=== PATIENT | male | born 1995 | race Caucasian/White ===

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

== ENCOUNTER 2019-01-03 03:18 | Emergency (ER) | payer OTHER ==
[~2019-01-03] VITALS: Ht 180.3 cm; Wt 122.7 kg
[~2019-01-03 03:18] MED LIST changes: +CLINDAMYCIN300 M1 PO
[2019-01-03 03:47] LABS: HEMATOCRIT 43.8 % (39.0-50.0); HEMOGLOBIN 14.5 g/dl (14.0-18.0); IMMATURE GRANULOCYTES 0.2 % (0.0-5.0); MEAN CORPUSCULAR HGB 29.2 pG CALC (26.0-32.0); MEAN CORPUSCULAR HGB CONC 33.1 g/L CALC (32.0-36.0); NEUT# 6.62 thou/uL (1.82-7.42); RED BLOOD COUNT 4.96 mill/uL (4.70-6.10); RED CELL DISTRI WIDTH 13.4 % (11.5-15.5)
[2019-01-03 03:56] LABS: MEAN CELL VOLUME 88.3 fL CALC (80.0-100.0)
[2019-01-03 04:00] LABS: URINE BLOOD DIPSTICK LARGE (NEGATIVE); URINE GLUCOSE - DIPSTICK NEGATIVE (NEGATIVE); URINE KETONE TRACE mg/dL (NEGATIVE); URINE LEUK ESTERASE NEGATIVE (NEGATIVE); URINE PROTEIN - DIPSTICK 100 mg/dL (NEG-TRACE); URINE SPECIFIC GRAVITY >=1.030
[2019-01-03 04:01] LABS: URINE BILIRUBIN - DIPSTICK SMALL (NEGATIVE); URINE COLOR BROWN; URINE NITRITE - DIPSTICK POSITIVE (Negative)
[2019-01-03 04:02] LABS: URINE RBC 25-50 RBC/hpf (0-5)
[2019-01-03 04:03] LABS: URINE AMORPH SEDIMENT MODERATE hpf (NONE-FER); URINE BACTERIA MODERATE hpf; URINE EPITHELIAL CELLS MODERATE EPI/hpf (0-FEW); URINE MUCUS MANY hpf (NONE-FEW)
[2019-01-03 04:05] LABS: ALBUMIN 4.6 g/dL (3.2-5.0); ALKALINE PHOSPHATASE 84 u/l (38-126); ANION GAP 19 (6-22 (CALC)); BILIRUBIN, TOTAL 0.5 mg/dL (0.0-1.4); BUN 18 mg/dL (9-20); BUN/CREATININE RATIO 18 (12-20 (CALC)); CARBON DIOXIDE 20 mmol/l (22-30); CHLORIDE 105 mmol/l (95-108); GFR > 60 ML/MIN (>=60 (CALC)); GFR FOR AFR.AMER. > 60 ML/MIN (>=60 (CALC)); POTASSIUM 4.2 mmol/l (3.5-5.1); SGOT/AST 20 u/l (17-59); SODIUM 140 mmol/l (137-146); TOTAL PROTEIN 7.4 g/dL (6.3-8.2)
[2019-01-03] MEDS ORDERED: TAMSULOSIN0.4 MG PO (04:43)
[2019-01-03] MEDS ORDERED: CIPROFLOXACN500 MG PO (04:43)
[2019-01-03] MEDS ORDERED: PERCOCET 5/321 COMBO PO (04:43)
[2019-01-03] MEDS ORDERED: ZOFRAN4 MG/TAB PO (04:43)
[2019-01-03 05:00] VITALS: BP 140/78
== END 2019-01-03 05:05 | disposition home or self-care (01) | DRG 694 ==
LOC: ED 03:18
DX: N13.2 Hydronephrosis with renal and ureteral calculous obstruction (principal)

== ENCOUNTER 2019-06-05 | Emergency (ER) | payer SELFPAY ==
[~2019-06-05] MED LIST changes: +CIPROFLOXACN500 MG PO; +PERCOCET 5/321 COMBO PO; +TAMSULOSIN0.4 MG PO; +ZOFRAN4 MG/TAB PO
== END 2019-06-05 19:53 | disposition home or self-care (01) | DRG 563 ==
DX: S92.354A Nondisplaced fracture of fifth metatarsal bone, right foot, initial encounter for closed fracture (principal); F17.210 Nicotine dependence, cigarettes, uncomplicated; W10.9XXA Fall (on) (from) unspecified stairs and steps, initial encounter; Y92.009 Unspecified place in unspecified non-institutional (private) residence as the place of occurrence of the external cause

== ENCOUNTER 2020-01-24 06:10 | Emergency (ER) | payer SELFPAY ==
[~2020-01-24] VITALS: Ht 180.3 cm; Wt 127.2 kg
[2020-01-24 07:25] LABS: HEMATOCRIT 49.1 % (39.0-50.0); HEMOGLOBIN 15.8 g/dl (14.0-18.0); IMMATURE GRANULOCYTES 0.4 % (0.0-5.0); MEAN CELL VOLUME 89.6 fL CALC (80.0-100.0); MEAN CORPUSCULAR HGB 28.8 pG CALC (26.0-32.0); MEAN CORPUSCULAR HGB CONC 32.2 g/dL CAL (32.0-36.0); NEUT# 12.04 thou/uL (1.82-7.42); RED BLOOD COUNT 5.48 mill/uL (4.70-6.10); RED CELL DISTRI WIDTH 13.4 % (11.5-15.5)
[2020-01-24 07:27] LABS: URINE BLOOD DIPSTICK LARGE (NEGATIVE); URINE COLOR BROWN; URINE GLUCOSE - DIPSTICK NEGATIVE (NEGATIVE); URINE KETONE NEGATIVE (NEGATIVE); URINE LEUK ESTERASE NEGATIVE (NEGATIVE); URINE PROTEIN - DIPSTICK 100 mg/dL (NEG-TRACE); URINE SPECIFIC GRAVITY >=1.030; URINE UROBILINOGEN - DIPSTICK 0.2 E.U./dL (0.2)
[2020-01-24 07:28] LABS: URINE BILIRUBIN - DIPSTICK NEGATIVE (NEGATIVE)
[2020-01-24 07:35] LABS: URINE BACTERIA RARE hpf; URINE EPITHELIAL CELLS RARE EPI/hpf (0-FEW); URINE NITRITE - DIPSTICK NEGATIVE (Negative); URINE RBC 50-100 RBC/hpf (0-5); URINE WBC 0-2 WBC/hpf (0-5)
[2020-01-24 07:47] LABS: ALBUMIN 4.9 g/dL (3.2-5.0); ALKALINE PHOSPHATASE 94 u/l (38-126); AMYLASE 61 u/l (30-110); ANION GAP 14 (6-22 (CALC)); BILIRUBIN, TOTAL 0.4 mg/dL (0.0-1.4); BUN 10 mg/dL (9-20); BUN/CREATININE RATIO 12 (12-20 (CALC)); CARBON DIOXIDE 24 mmol/l (22-30); CHLORIDE 105 mmol/l (95-108); CREATININE 0.9 mg/dL (0.7-1.3); GFR > 60 ML/MIN (>=60 (CALC)); GFR FOR AFR.AMER. > 60 ML/MIN (>=60 (CALC)); LIPASE 51 u/l (23-300); POTASSIUM 4.3 mmol/l (3.5-5.1); SGOT/AST 20 u/l (17-59); SODIUM 138 mmol/l (137-146); TOTAL PROTEIN 7.9 g/dL (6.3-8.2)
[2020-01-24] MEDS ORDERED: TAMSULOSIN0.4 MG PO (08:07)
[2020-01-24] MEDS ORDERED: ZOFRAN4 MG/TAB PO (08:07)
[2020-01-24] MEDS ORDERED: HYDROCO/APAP1 TA9 PO ×3 (08:07→08:31)
[2020-01-24 08:28] VITALS: BP 161/85
== END 2020-01-24 09:18 | disposition home or self-care (01) | DRG 694 ==
LOC: ED 06:10
DX: N13.2 Hydronephrosis with renal and ureteral calculous obstruction (principal); F17.200 Nicotine dependence, unspecified, uncomplicated; Z87.442 Personal history of urinary calculi

== ENCOUNTER 2020-04-02 22:28 | Emergency (ER) | payer SELFPAY ==
[~2020-04-02] VITALS: Ht 180.3 cm; Wt 127.0 kg
[~2020-04-02 22:28] MED LIST changes: +HYDROCO/APAP1 TA9 PO
[2020-04-02 23:32] LABS: HEMATOCRIT 48.3 % (39.0-50.0); HEMOGLOBIN 15.7 g/dl (14.0-18.0); IMMATURE GRANULOCYTES 0.3 % (0.0-5.0); MEAN CELL VOLUME 89.1 fL CALC (80.0-100.0); MEAN CORPUSCULAR HGB CONC 32.5 g/dL CAL (32.0-36.0); NEUT# 9.06 thou/uL (1.82-7.42); RED BLOOD COUNT 5.42 mill/uL (4.70-6.10); RED CELL DISTRI WIDTH 13.4 % (11.5-15.5)
[2020-04-02 23:40] LABS: URINE BLOOD DIPSTICK LARGE (NEGATIVE); URINE COLOR YELLOW; URINE GLUCOSE - DIPSTICK NEGATIVE (NEGATIVE); URINE KETONE TRACE mg/dL (NEGATIVE); URINE NITRITE - DIPSTICK NEGATIVE (Negative); URINE PH 5.5 (4.5-8.0); URINE PROTEIN - DIPSTICK 30 mg/dL (NEG-TRACE); URINE SPECIFIC GRAVITY >=1.030; URINE UROBILINOGEN - DIPSTICK 0.2 E.U./dL (0.2)
[2020-04-02 23:42] LABS: URINE BILIRUBIN - DIPSTICK SMALL (NEGATIVE); URINE LEUK ESTERASE NEGATIVE (NEGATIVE)
[2020-04-02 23:46] LABS: URINE BACTERIA MODERATE hpf; URINE EPITHELIAL CELLS FEW EPI/hpf (0-FEW); URINE RBC >100 RBC/hpf (0-5)
[2020-04-02 23:49] LABS: ALBUMIN 4.8 g/dL (3.2-5.0); ALKALINE PHOSPHATASE 79 u/l (38-126); ANION GAP 13 (6-22 (CALC)); BILIRUBIN, TOTAL 0.3 mg/dL (0.0-1.4); BUN 12 mg/dL (9-20); BUN/CREATININE RATIO 13 (12-20 (CALC)); CARBON DIOXIDE 27 mmol/l (22-30); CHLORIDE 104 mmol/l (95-108); GFR > 60 ML/MIN (>=60 (CALC)); GFR FOR AFR.AMER. > 60 ML/MIN (>=60 (CALC)); POTASSIUM 4.5 mmol/l (3.5-5.1); SGOT/AST 20 u/l (17-59); SODIUM 139 mmol/l (137-146); TOTAL PROTEIN 7.8 g/dL (6.3-8.2)
[2020-04-03] MEDS ORDERED: CIPROFLOXACN500 MG PO (00:56)
[2020-04-03] MEDS ORDERED: TAMSULOSIN0.4 MG PO (00:56)
[2020-04-03] MEDS ORDERED: HYDROCO/APAP1 TA9 PO (00:56)
[2020-04-03 01:10] VITALS: BP 128/63
== END 2020-04-03 01:15 | disposition home or self-care (01) | DRG 694 ==
LOC: ED 22:28
DX: N13.2 Hydronephrosis with renal and ureteral calculous obstruction (principal); N20.2 Calculus of kidney with calculus of ureter; F17.200 Nicotine dependence, unspecified, uncomplicated; Z87.442 Personal history of urinary calculi

== ENCOUNTER 2021-05-14 08:27 | Emergency (ER) | payer SELFPAY ==
[~2021-05-14] VITALS: Ht 180.3 cm; Wt 100.0 kg
[2021-05-14 09:11] LABS: URINE BILIRUBIN - DIPSTICK MODERATE (NEGATIVE); URINE BLOOD DIPSTICK LARGE (NEGATIVE); URINE COLOR YELLOW; URINE GLUCOSE - DIPSTICK NEGATIVE (NEGATIVE); URINE KETONE 15 mg/dL (NEGATIVE); URINE LEUK ESTERASE NEGATIVE (NEGATIVE); URINE NITRITE - DIPSTICK POSITIVE (Negative); URINE PH 5.5 (4.5-8.0); URINE PROTEIN - DIPSTICK 100 mg/dL (NEG-TRACE); URINE SPECIFIC GRAVITY >=1.030; URINE UROBILINOGEN - DIPSTICK 0.2 E.U./dL (0.2)
[2021-05-14 09:18] LABS: URINE BACTERIA FEW hpf; URINE RBC 50-100 RBC/hpf (0-5); URINE SQUAMOUS EPITHELIAL CELL FEW EPI/hpf (0-FEW)
[2021-05-14 09:23] LABS: HEMATOCRIT 46.7 % (39.0-50.0); HEMOGLOBIN 15.1 g/dl (14.0-18.0); IMMATURE GRANULOCYTES 0.1 % (0.0-5.0); MEAN CELL VOLUME 89.8 fL CALC (80.0-100.0); MEAN CORPUSCULAR HGB CONC 32.3 g/dL CAL (32.0-36.0); RED BLOOD COUNT 5.2 mill/uL (4.70-6.10); RED CELL DISTRI WIDTH 14.1 % (11.5-15.5)
[2021-05-14 10:06] LABS: ALBUMIN 4.4 g/dL (3.2-5.0); ALKALINE PHOSPHATASE 84 u/l (38-126); ANION GAP 13 (6-22 (CALC)); BUN 12 mg/dL (9-20); BUN/CREATININE RATIO 13 (12-20 (CALC)); CARBON DIOXIDE 23 mmol/l (22-30); CHLORIDE 106 mmol/l (95-108); CREATININE 0.9 mg/dL (0.7-1.3); GFR > 60 ML/MIN (>=60 (CALC)); GFR FOR AFR.AMER. > 60 ML/MIN (>=60 (CALC)); POTASSIUM 3.8 mmol/l (3.5-5.1); SGOT/AST 31 u/l (17-59); SODIUM 138 mmol/l (137-146); TOTAL PROTEIN 7.6 g/dL (6.3-8.2)
[2021-05-14 10:10] LABS: BILIRUBIN, TOTAL 0.9 mg/dL (0.0-1.4)
[2021-05-14] MEDS ORDERED: TAMSULOSIN0.4 MG PO (10:27)
[2021-05-14] MEDS ORDERED: OMNI-PAC300 MG PO (10:27)
[2021-05-14] MEDS ORDERED: TORADOL PO (10:27)
[2021-05-14 10:38] VITALS: BP 116/62
== END 2021-05-14 10:58 | disposition home or self-care (01) | DRG 694 ==
LOC: ED 08:27
PROVIDERS: Family Medicine
DX: N20.0 Calculus of kidney (principal); N39.0 Urinary tract infection, site not specified; F17.200 Nicotine dependence, unspecified, uncomplicated

== ENCOUNTER 2021-07-23 11:18 | Emergency (ER) | payer SELFPAY ==
[~2021-07-23] VITALS: Ht 180.3 cm; Wt 113.6 kg
[~2021-07-23 11:18] MED LIST changes: +OMNI-PAC300 MG PO; +TORADOL PO
[2021-07-23 11:25] VITALS: BP 127/78
[2021-07-23 11:31] VITALS: BP 120/76
[2021-07-23] MEDS ORDERED: CLINDAMYCIN HY300 MG PO ×2 (11:31→11:33)
[2021-07-23 11:36] VITALS: BP 127/78
== END 2021-07-23 11:36 | disposition home or self-care (01) | DRG 159 ==
LOC: ED 11:18
DX: K05.10 Chronic gingivitis, plaque induced (principal); F17.210 Nicotine dependence, cigarettes, uncomplicated

== ENCOUNTER 2022-06-04 22:49 | Emergency (ER) | payer SELFPAY ==
[~2022-06-04] VITALS: Ht 180.3 cm; Wt 100.0 kg
[~2022-06-04 22:49] MED LIST changes: +CLINDAMYCIN HY300 MG PO
[2022-06-04 23:06] VITALS: BP 137/84
[2022-06-04 23:15] VITALS: BP 127/89
[2022-06-04 23:30] VITALS: BP 124/78
[2022-06-04 23:45] VITALS: BP 113/93
[2022-06-05] VITALS: BP 121/81
== END 2022-06-05 00:09 | disposition home or self-care (01) | DRG 563 ==
LOC: ED 22:49
DX: S62.334A Displaced fracture of neck of fourth metacarpal bone, right hand, initial encounter for closed fracture (principal); F17.200 Nicotine dependence, unspecified, uncomplicated; W19.XXXA Unspecified fall, initial encounter; Y92.009 Unspecified place in unspecified non-institutional (private) residence as the place of occurrence of the external cause

== ENCOUNTER 2023-04-11 17:29 | Emergency (ER) | payer OTHER ==
[~2023-04-11] VITALS: Ht 180.3 cm; Wt 113.0 kg
[~2023-04-11 17:29] MED LIST changes: +BACTRIM DS1 TAB PO; +CEPHALEXIN500 MG PO; +LORTAB 1010 MG PO
[2023-04-11 17:57] VITALS: BP 147/97
[2023-04-11 18:01] VITALS: BP 140/100
[2023-04-11] MEDS ORDERED: MOTRIN800 MG PO (18:33)
[2023-04-11] MEDS ORDERED: BACTRIM DS1 TAB PO (18:33)
[2023-04-11 18:49] VITALS: BP 138/79
[2023-04-11 18:53] VITALS: BP 138/79
== END 2023-04-11 19:00 | disposition home or self-care (01) | DRG 605 ==
LOC: ED 17:29
PROC: 0HQGXZZ Repair Left Hand Skin, External Approach (ICD-10-PCS; principal; 2023-04-11)
DX: S61.412A Laceration without foreign body of left hand, initial encounter (principal); W20.8XXA Other cause of strike by thrown, projected or falling object, initial encounter; Y93.89 Activity, other specified; Y92.79 Other farm location as the place of occurrence of the external cause; Y99.0 Civilian activity done for income or pay; F17.200 Nicotine dependence, unspecified, uncomplicated